=== PATIENT | male | born 1930 | race Caucasian/White ===

== ENCOUNTER 2017-09-23 11:22 | Outpatient (CLI) | payer OTHER | END 2017-09-23 11:33 | disposition home or self-care (01) | LOC: LAB 11:22 | DX: E03.8 Other specified hypothyroidism (principal) ==

== ENCOUNTER 2017-09-23 11:26 | Outpatient (CLI) | payer OTHER | END 2017-09-23 11:35 | disposition home or self-care (01) | LOC: RAD 11:26 | DX: N20.0 Calculus of kidney (principal); M25.551 Pain in right hip; M25.552 Pain in left hip; M54.5 Low back pain ==

== ENCOUNTER → 2017-10-05 15:45 | Outpatient (CLI) | payer OTHER | END | disposition home or self-care (01) | LOC: LAB 15:45 | DX: N20.0 Calculus of kidney (principal); N30.00 Acute cystitis without hematuria ==

== ENCOUNTER 2017-10-06 08:15 | Outpatient (CLI) | payer OTHER | END 2017-10-06 11:01 | disposition home or self-care (01) | LOC: RAD 08:15 | DX: I10 Essential (primary) hypertension (principal) ==

== ENCOUNTER 2017-10-12 05:24 | Day surgery (SDC) | payer OTHER | END 2017-10-12 14:10 | disposition home or self-care (01) | LOC: CIR.AMB 05:24 | DX: N20.1 Calculus of ureter (principal) ==

== ENCOUNTER 2017-10-28 07:00 | Outpatient (CLI) | payer OTHER | END 2017-10-28 07:09 | disposition home or self-care (01) | LOC: LAB 07:00 | DX: N30.00 Acute cystitis without hematuria (principal); N20.1 Calculus of ureter; C61 Malignant neoplasm of prostate ==

== ENCOUNTER 2017-10-28 07:02 | Outpatient (CLI) | payer OTHER | END 2017-10-28 07:07 | disposition home or self-care (01) | LOC: RAD 07:02 | DX: N20.1 Calculus of ureter (principal) ==

== ENCOUNTER 2018-10-16 15:17 | Outpatient (CLI) | payer OTHER | END 2018-10-16 15:22 | disposition home or self-care (01) | LOC: RAD 15:17 | DX: N20.1 Calculus of ureter (principal) ==

== ENCOUNTER 2019-01-15 16:14 | Outpatient (CLI) | payer OTHER | END 2019-01-15 16:29 | disposition home or self-care (01) | LOC: LAB 16:14 | DX: E55.9 Vitamin D deficiency, unspecified (principal); M85.88 Other specified disorders of bone density and structure, other site; E56.1 Deficiency of vitamin K ==

== ENCOUNTER 2020-03-10 09:17 | Outpatient (CLI) | payer OTHER | END 2020-03-10 09:21 | disposition home or self-care (01) | LOC: SONOGRAMA 09:17 | PROVIDERS: ATTEND Urology | DX: N20.1 Calculus of ureter (principal); C61 Malignant neoplasm of prostate ==

== ENCOUNTER → 2020-03-10 | Outpatient (CLI) | payer OTHER | END | disposition home or self-care (01) | LOC: LAB 08:17 | PROVIDERS: ATTEND Urology | DX: I11.9 Hypertensive heart disease without heart failure (principal); R31.29 Other microscopic hematuria ==

== ENCOUNTER 2021-01-30 14:14 | Outpatient (CLI) | payer OTHER | END 2021-01-30 14:15 | disposition home or self-care (01) | LOC: NUCLEAR 14:14 | PROVIDERS: ATTEND Orthopaedic Surgery | DX: M81.0 Age-related osteoporosis without current pathological fracture (principal); M85.9 Disorder of bone density and structure, unspecified ==

== ENCOUNTER → 2021-09-14 06:13 | Outpatient (CLI) | payer OTHER | END | disposition home or self-care (01) | LOC: LAB 06:13 | PROVIDERS: ATTEND Internal Medicine Gastroenterology | DX: R10.30 Lower abdominal pain, unspecified (principal); K57.32 Diverticulitis of large intestine without perforation or abscess without bleeding ==

== ENCOUNTER 2021-09-14 07:06 | Outpatient (CLI) | payer OTHER | END 2021-09-14 07:15 | disposition home or self-care (01) | LOC: TOM 07:06 | PROVIDERS: ATTEND Internal Medicine Gastroenterology | DX: K57.30 Diverticulosis of large intestine without perforation or abscess without bleeding (principal); K40.90 Unilateral inguinal hernia, without obstruction or gangrene, not specified as recurrent; R10.30 Lower abdominal pain, unspecified; K44.9 Diaphragmatic hernia without obstruction or gangrene | CPT/HCPCS: 74177; Q9965 ==

== ENCOUNTER 2021-09-19 08:30 | Emergency (ER) | payer OTHER ==
[~2021-09-19] VITALS: Ht 160 cm; Wt 67.1 kg
[2021-09-19] MEDS ORDERED: TELMISARTAN80 MG PO (08:49)
[2021-09-19] MEDS ORDERED: FLECAINIDE ACET50 MG PO (08:50)
[2021-09-19] MEDS ORDERED: NORVASC5 MG PO (08:50)
[2021-09-19] MEDS ORDERED: PROBIOTIC1 EAC1 PO (08:50)
[2021-09-19] MEDS ORDERED: FLEET ENEMA EX230 ML RECTAL (17:00)
== END 2021-09-19 17:07 ==
LOC: ER 08:30
DX: K59.00 Constipation, unspecified (principal)

== ENCOUNTER 2022-06-07 11:00 | Outpatient (CLI) | payer OTHER ==
[~2022-06-07 11:00] MED LIST: FLECAINIDE ACET50 MG PO; FLEET ENEMA EX230 ML RECTAL; NORVASC5 MG PO; PROBIOTIC1 EAC1 PO; TELMISARTAN80 MG PO
== END 2022-06-07 11:01 | disposition home or self-care (01) ==
LOC: LAB 11:00
PROVIDERS: ATTEND Internal Medicine Nephrology
DX: R80.0 Isolated proteinuria (principal)